=== PATIENT | female | born 1995 | race Caucasian/White ===

== ENCOUNTER 2017-06-14 10:55 | Emergency (ER) | payer BC | END 2017-06-14 13:32 | disposition left against medical advice (07) | LOC: UCCORT 10:55 | DX: R39.9 Unspecified symptoms and signs involving the genitourinary system (principal); Z53.21 Procedure and treatment not carried out due to patient leaving prior to being seen by health care provider ==

== ENCOUNTER 2017-10-23 15:56 | Emergency (ER) | payer BC ==
[2017-10-23 17:22] VITALS: BP 115/82
--- NOTE | 2017-10-23 17:42 | UC ---
Throat Pain/Nasal Samir HPI - HPI Summary HPI Summary: Pt presents with c/o nasal congestion, sinus pressure and pain , and BERRY X 8 days. - History of Current Complaint Chief Complaint: UCRespiratory Stated Complaint: SINUS COMP Time Seen by Provider: 10/23/17 17:29 Hx Obtained From: Patient Hx Last Menstrual Period: ONSET TODAY ?: No Onset/Duration: Sudden Onset, Lasting Days, Still Present Severity: Moderate Pain Intensity: 7 Cough: Nonproductive Associated Signs & Symptoms: Positive: Sinus Discomfort, Nasal Discharge - Epiglottits Risk Factors Epiglottis Risk Factors: Negative - Allergies/Home Medications Allergies/Adverse Reactions: Allergies Allergy/AdvReac Type Severity Reaction Status Date / Time No Known Allergies Allergy Verified 10/23/17 17:15 Home Medications: Home Medications Norgestimate-Ethinyl Estradiol [Tri-Linyah Tablet] 1 tab PO DAILY 10/23/17 [ History Confirmed 10/23/17] PMH/Surg Hx/FS Hx/Imm Hx Previously Healthy: Yes - Surgical History Surgical History: None Surgery Procedure, Year, and Place: [address] OFFICE. BUNIONECTOMY RIGHT FOOT - Family History Known Family History: Positive: Cardiac Disease - Social History Lives: With Family Alcohol Use: Occasionally Substance Use Type: None Smoking Status (MU): Never Smoked Tobacco Have You Smoked in the Last Year: No - Immunization History Vaccination Up to Date: Yes Review of Systems Constitutional: Fatigue Skin: Negative Eyes: Negative ENT: Sinus Congestion, Sinus Pain/Tenderness Respiratory: Cough Cardiovascular: Negative Gastrointestinal: Negative Genitourinary: Negative Motor: Negative Neurovascular: Negative Musculoskeletal: Negative Neurological: Headache Psychological: Negative Is Patient Immunocompromised?: No All Other Systems Reviewed And Are Negative: Yes Physical Exam Triage Information Reviewed: Yes Appearance: Ill-Appearing Vital Signs: Initial Vital Signs Temp 98.2 F 10/23/17 17:16 Pulse 86 10/23/17 17:16 Resp 16 10/23/17 17:16 BP 115/82 10/23/17 17:16 Pulse Ox 98 10/23/17 17:16 Vital Signs Reviewed: Yes Eye Exam: Normal ENT Exam: Other ENT: Positive: Nasal congestion, Sinus tenderness Dental Exam: Normal Neck exam: Normal Respiratory Exam: Normal Cardiovascular Exam: Normal Musculoskeletal Exam: Normal Neurological Exam: Normal Psychological Exam: Normal Skin Exam: Normal Throat Pain/Nasal Course/Dx - Differential Dx/Diagnosis Differential Diagnosis/HQI/PQRI: Sinusitis, URI Provider Diagnoses: sinusitis Discharge - Sign-Out/Discharge Documenting (check all that apply): Discharge/Admit/Transfer - Discharge Plan Condition: Stable Disposition: HOME Prescriptions: Amoxicillin PO (*) [Amoxicillin 875 MG (*)] 875 mg PO Q12H #20 tab Cetirizine HCl/Pseudoephedrine [Zyrtec-D Tablet] 1 each PO DAILY #10 tab Patient Education Materials: Sinusitis (ED) Referrals: Garima Smart MD [Primary Care Provider] - If Needed - Billing Disposition and Condition Condition: STABLE Disposition: HOME
== END 2017-10-23 17:53 | disposition home or self-care (01) ==
LOC: UCCORT 15:56
DX: J32.9 Chronic sinusitis, unspecified (principal)
CPT/HCPCS: 99212; G0463

== ENCOUNTER 2018-11-03 14:14 | Emergency (ER) | payer BC ==
[2018-11-03 15:16] VITALS: BP 123/82
--- NOTE | 2018-11-03 15:24 | UC ---
Throat Pain/Nasal Samir HPI - HPI Summary HPI Summary: 23-year-old female presents with 2 day history headache, sinus pressure, nasal congestion, runny nose, postnasal drip, bilateral ear fullness, and some mild sore throat. Associated with some dizziness which she describes as occasional disequilibrium. States has had similar symptoms around this time of year in the past although has never been officially diagnosed with seasonal allergies. Denies fever, chills, ear pain, dysphagia, cough, shortness of breath, chest pain, abdominal pain, nausea or vomiting. - History of Current Complaint Chief Complaint: UCRespiratory Stated Complaint: SORE THROAT, SINUSES Time Seen by Provider: 11/03/18 15:08 Hx Obtained From: Patient Hx Last Menstrual Period: 10/29/18 Pain Intensity: 5 - Allergies/Home Medications Allergies/Adverse Reactions: Allergies Allergy/AdvReac Type Severity Reaction Status Date / Time No Known Allergies Allergy Verified 11/03/18 15:13 Home Medications: Home Medications D-Methorphan/PE/Acetaminophen [Vicks Dayquil Cold & Flu] 2 cap PO Q6H PRN [History Confirmed 11/03/18] PMH/Surg Hx/FS Hx/Imm Hx Previously Healthy: Yes - Denies significant PMH - Surgical History Surgical History: Yes Surgery Procedure, Year, and Place: 2013 [address] OFFICE. BUNIONECTOMY RIGHT FOOT - Family History Known Family History: Positive: Cardiac Disease - Social History Occupation: Employed Full-time Lives: Alone Alcohol Use: Rare Substance Use Type: None Smoking Status (MU): Never Smoked Tobacco Have You Smoked in the Last Year: No - Immunization History Vaccination Up to Date: Yes Review of Systems All Other Systems Reviewed And Are Negative: Yes Constitutional: Negative: Fever, Chills Eyes: Negative: Drainage, Eye Redness ENT: Positive: Sore Throat, Nasal Discharge, Sinus Congestion, Sinus Pain/ Tenderness. Negative: Ear Ache Respiratory: Negative: Shortness Of Breath, Cough Cardiovascular: Negative: Palpitations, Chest Pain Gastrointestinal: Negative: Abdominal Pain, Vomiting, Diarrhea, Nausea Genitourinary: Positive: Negative Musculoskeletal: Positive: Negative Neurological: Positive: Headache Is Patient Immunocompromised?: No Physical Exam - Summary Physical Exam Summary: GENERAL APPEARANCE: Well developed, well nourished, alert and cooperative, and appears to be in no acute distress. EYES: Conjunctiva clear. No drainage. EARS: External auditory canals and tympanic membranes clear, hearing grossly intact. NOSE: Moderate nasal congestion with clear nasal discharge. Tenderness over the maxillary sinuses. THROAT: Pharyngeal cobblestoning. No tonsilar inflammation, swelling, exudate, or lesions. Uvula midline. Oral cavity normal. Teeth and gingiva in good general condition. NECK: Neck supple, non-tender without lymphadenopathy. CARDIAC: Normal S1 and S2. No S3, S4 or murmurs. Rhythm is regular. There is no peripheral edema, cyanosis or pallor. Extremities are warm and well perfused. Capillary refill is less than 2 seconds. Peripheral pulses intact. LUNGS: Clear to auscultation without rales, rhonchi, wheezing or diminished breath sounds. ABDOMEN: Positive bowel sounds. Soft, nondistended, nontender. No guarding or rebound. No masses or hepatosplenomegally. MUSKULOSKELETAL: ROM intact to all extremities. No joint erythema or tenderness. Normal muscular development. Normal gait. SKIN: Skin normal color, texture and turgor with no lesions or eruptions. Triage Information Reviewed: Yes Vital Signs: Initial Vital Signs Temp 98.6 F 11/03/18 15:11 Pulse 98 11/03/18 15:11 Resp 16 11/03/18 15:11 BP 123/82 11/03/18 15:11 Pulse Ox 100 11/03/18 15:11 Vital Signs Reviewed: Yes Throat Pain/Nasal Course/Dx - Course Course Of Treatment: 23-year-old female presents with 2 day history headache, sinus pressure, nasal congestion, runny nose, postnasal drip, bilateral ear fullness, and some mild sore throat. Associated with some dizziness which she describes as occasional disequilibrium. States has had similar symptoms around this time of year in the past although has never been officially diagnosed with seasonal allergies. Denies fever, chills, ear pain, dysphagia, cough, shortness of breath, chest pain, abdominal pain, nausea or vomiting. Afebrile. Vital signs stable. Exam revealed motor nasal congestion, clear nasal discharge, maxillary sinus tenderness, pharyngeal cobblestoning with no tonsillar swelling or exudate, and no cervical lymphadenopathy. Recommending conservative treatment for acute rhinosinusitis related to viral illness versus seasonal allergy including saline rinses, fluticasone nasal spray, [id number] combination antihistamine-decongestant, and [id number] analgesics. She is to follow- up with her primary care provider in 3-5 days if symptoms persist. Anticipatory guidance and warning symptoms were reviewed with the patient. Verbalizes understanding and agrees with plan of care. - Differential Dx/Diagnosis Differential Diagnosis/HQI/PQRI: Sinusitis, URI, Other - Seasonal allergies Provider Diagnosis: Acute rhinosinusitis Discharge - Sign-Out/Discharge Documenting (check all that apply): Patient Departure All imaging exams completed and their final reports reviewed: No Studies - Discharge Plan Condition: Stable Disposition: HOME Prescriptions: Fluticasone NASAL SPRAY 50MCG* [Flonase NASAL SPRAY 50MCG*] 2 spray BOTH NARES DAILY #1 btl Patient Education Materials: Rhinosinusitis (ED) Referrals: Garima Smart MD [Primary Care Provider] - 3 Days Additional Instructions: Your history and exam are consistent with a sinus infection. Sinus infections without fever are most often caused by a viral infections or allergies. Viral infections and allergies do not respond to antibiotics and are limited to the treatment of symptoms. Viral infections typically run their course in 7-10 days. Drink plenty of fluids to avoid dehydration especially if you are running any fever. Use a saline rinse kit such as Neti Pot or NeilMed at least twice a day to help thin secretions and promote drainage of the sinuses. Use fluticasone (Flonase) nasal spray 2 sprays each nostril once daily. Use an over the counter antihistamine-decongestant such as Zyrtec-D, Opal-D, or Claritin-D according to directions to help with congestion. Take over the counter acetaminophen (Tylenol) or ibuprofen (Advil, Motrin) according to directions as needed for pain or fever. Follow up with your primary care provider in 3-5 days if symptoms persist. Seek immediate medical attention in the emergency room if you have fever greater than 100.5 F despite taking acetaminophen or ibuprofen, have chest pain , difficulty breathing, are unable to swallow, or have any worsening of symptoms. - Billing Disposition and Condition Condition: STABLE Disposition: Home - Attestation Statements Provider Attestation: Per institutional requirements, I have reviewed the chart, however, I was not consulted specifically or made aware of this patient by the midlevel provider. I did not personally evaluate, interact with , or disposition this patient.
== END 2018-11-03 15:50 | disposition home or self-care (01) ==
LOC: UCCORT 14:14
DX: J01.90 Acute sinusitis, unspecified (principal); J02.9 Acute pharyngitis, unspecified; R42 Dizziness and giddiness
CPT/HCPCS: 99212; G0463

== ENCOUNTER 2021-07-26 20:17 | Inpatient (IN) ==
[2021-07-26] MEDS: Lactated Ringers 1000 ml BAG 1,000 ML IV ONE (21:20)
[2021-07-26 21:35] LABS: ABS Eosinophils 0.2 10^3/ul (0-0.6); ABS Lymphocytes 2.9 10^3/ul (1.0-4.8); ABS Neutrophils 10.4 10^3/ul (1.5-7.7); Hematocrit 36 % (35-47); Hemoglobin 12.1 g/dL (12.0-16.0); Mean Corpuscular HGB Conc 34 g/dL (31-36); Mean Corpuscular Hemoglobin 28 pg (27-31); Mean Corpuscular Volume 84 fL (80-97); Mean Platelet Volume 7.8 fL (7.4-10.4); Platelet Count 229 10^3/uL (150-450); Red Blood Count 4.26 10^6 /uL (3.70-4.87); Red Cell Distribution Width 14 % (10-15); White Blood Count 14.5 10^3/uL (3.5-10.8)
[2021-07-26] MEDS ORDERED: fentaNYL 100 mcg/2 ml 50 MCG/ML VIAL ONE ×2 (22:51→23:30)
[2021-07-26] MEDS ORDERED: fentaNYL 100 mcg/2 ml 50 MCG/ML VIAL IV SLOW PU ONE (22:51)
[2021-07-26] MEDS ORDERED: Ropivacaine 0.1% EPIDURAL 300 ML EPIDURAL SCH (23:45)
[2021-07-27] MEDS: Lactated Ringers 1000 ml BAG 1,000 ML IV ONE (00:10)
[2021-07-27] MEDS ORDERED: Phenylephrine 40 mcg/mL 10mL (400mcg) SYRINGE IV PUSH PRN ×2 (00:15)
[2021-07-27] MEDS ORDERED: Sodium Citrate/Citric Acid LIQ 15 ML UDC PO PRN (00:15)
[2021-07-27] MEDS ORDERED: Lactated Ringers 1000 ml BAG 1,000 ML IV ONE (00:15)
[2021-07-27] MEDS ORDERED: OBEPIDURAL 250 ML EPIDURAL SCH (01:00)
[2021-07-27] MEDS ORDERED: Lactated Ringers 1000 ml BAG 1,000 ML IV SCH ×2 (01:00→13:00)
[2021-07-27 01:09] LABS: Urine Appearance Clear; Urine Bilirubin Negative (Negative); Urine Blood Negative (Negative); Urine Color Yellow; Urine Glucose Negative (Negative); Urine Ketones Negative (Negative); Urine Nitrite Negative (Negative); Urine Protein Negative (Negative); Urine Specific Gravity 1.014 (1.002-1.030); Urine Urobilinogen Negative (Negative)
[2021-07-27] MEDS ORDERED: Ropivacaine 0.2% 2 MG/ML VIAL ONE (01:11)
[2021-07-27 01:12] LABS: Urine Benzodiazepine Screen None Detected (None Detect); Urine Cannabinoids Screen None Detected (None Detect); Urine Opiates Screen None Detected (None Detect)
[2021-07-27] MEDS ORDERED: Lidocaine 2% PF 10 ML AMP ONE (03:39)
[2021-07-27] MEDS ORDERED: Bupivacaine 0.25% SDV PF 10 ML VIAL INJ ONE (03:39)
[2021-07-27] MEDS ORDERED: Oxytocin in LR 20 UNITS/1,000 ML BAG IVPB ONE (05:03)
[2021-07-27] MEDS ORDERED: Oxytocin in LR 20 UNITS/1,000 ML BAG IVPB SCH (08:00)
[2021-07-27] MEDS ORDERED: fentaNYL 100 mcg/2 ml 50 MCG/ML VIAL ONE (08:07)
[2021-07-27] MEDS ORDERED: Lidocaine 2% w/ EPI 1:200,000 MPF 20 ML SDV VIAL ONE (08:07)
[2021-07-27] MEDS: Oxytocin in LR 20 UNITS/1,000 ML BAG IVPB SCH ×2 (12:25→17:00)
[2021-07-27] MEDS ORDERED: Tetan/Diph/Pertus SYR(Tdap) 0.5 ML SYR(BOOSTRIX) use SYR contains LATEX IM ONE (12:35)
[2021-07-27] MEDS ORDERED: Glycerin ADULT 2.4 gm SUPP PR PRN (12:35)
[2021-07-27] MEDS: Witch Hazel PAD JAR TOPICAL PRN (14:41)
[2021-07-27] MEDS: Dibucaine 1% OINT 28.35 GM TUBE PR PRN (14:41)
[2021-07-27] MEDS ORDERED: Lidocaine 1% VIAL 10 MG/ML VIAL ONE (17:20)
[2021-07-28 06:23] LABS: ABS Basophils 0.1 10^3/ul (0-0.2); ABS Eosinophils 0.2 10^3/ul (0-0.6); ABS Lymphocytes 3.1 10^3/ul (1.0-4.8); ABS Monocytes 1.4 10^3/ul (0-0.8); ABS Neutrophils 15.5 10^3/ul (1.5-7.7); Eosinophil % 0.9 %; Hematocrit 30 % (35-47); Hemoglobin 10.1 g/dL (12.0-16.0); Lymphocyte % 15.2 %; Mean Corpuscular HGB Conc 34 g/dL (31-36); Mean Corpuscular Hemoglobin 29 pg (27-31); Mean Corpuscular Volume 86 fL (80-97); Mean Platelet Volume 7.6 fL (7.4-10.4); Platelet Count 189 10^3/uL (150-450); Red Blood Count 3.52 10^6 /uL (3.70-4.87); Red Cell Distribution Width 15 % (10-15); White Blood Count 20.2 10^3/uL (3.5-10.8)
[2021-07-28] MEDS: Witch Hazel PAD JAR TOPICAL PRN (23:19)
[2021-07-28] MEDS: Dibucaine 1% OINT 28.35 GM TUBE PR PRN (23:19)
[2021-07-29 08:25] VITALS: BP 121/76
== END 2021-07-29 14:15 | disposition home or self-care (01) | DRG 560 ==
LOC: MCHOBOUT 20:17 → MCHOB 20:51
PROVIDERS: ADMIT Midwife; ATTEND Midwife

== ENCOUNTER 2024-04-14 07:20 | Inpatient (IN) ==
[2024-04-14] MEDS ORDERED: Lidocaine 1% VIAL 10 MG/ML 30 ML VIAL INJ PRN (08:37)
[2024-04-14] MEDS ORDERED: Buffered Lidocaine 1% SYRIN 1 ml INTRADERM ONE (08:37)
[2024-04-14] MEDS: Lactated Ringers 1000 ml BAG 1,000 ML IV ONE (09:16)
[2024-04-14 09:23] LABS: ABS Basophils 0.1 10^3/uL (0.0-0.1); ABS Monocytes 0.6 10^3/uL (0.0-0.9); ABS Neutrophils 10.9 10^3/uL (1.5-7.6); Eosinophil % 0.2 %; Hematocrit 36.3 % (35-45); Hemoglobin 12.2 g/dL (11.5-14.3); Lymphocyte % 15.1 %; Mean Corpuscular Hemoglobin 27.8 pg (27-33); Mean Corpuscular Hgb Conc 33.7 g/dL (31-36); Mean Corpuscular Volume 82.6 fL (80-97); Mean Platelet Volume 7.7 fL (7.5-11.2); Platelet Count 251 10^3/uL (150-450); Red Cell Distribution Width 13.6 % (12-17); White Blood Count 13.5 10^3/uL (3.8-11.8)
[2024-04-14] MEDS ORDERED: Phenylephrine 40 mcg/mL 10mL (400mcg) SYRINGE ONE (09:44)
[2024-04-14] MEDS ORDERED: Lidocaine 1.5% EPI 1:200,000 30 ML SDV ONE (09:44)
[2024-04-14 09:46] LABS: Urine Benzodiazepine Screen None Detected (None Detect); Urine Cannabinoids Screen None Detected (None Detect); Urine Opiates Screen None Detected (None Detect)
[2024-04-14] MEDS: Lactated Ringers 1000 ml BAG 1,000 ML IV SCH (10:09)
[2024-04-14] MEDS: OBEPIDURAL (200 ML) 200 ML EPIDURAL ONE (10:15)
[2024-04-14] MEDS ORDERED: Lactated Ringers 1000 ml BAG 1,000 ML IV ONE (11:50)
[2024-04-14] MEDS ORDERED: Sodium Citrate/Citric Acid LIQ 15 ML UDC PO PRN (11:50)
[2024-04-14] MEDS ORDERED: Phenylephrine 40 mcg/mL 10mL (400mcg) SYRINGE IV PUSH PRN ×2 (11:50)
[2024-04-14] MEDS ORDERED: Lactated Ringers 1000 ml BAG 1,000 ML IV SCH (12:00)
[2024-04-14] MEDS ORDERED: fentaNYL 100 mcg/2 ml 50 MCG/ML VIAL ONE (14:37)
[2024-04-14] MEDS ORDERED: Bupivacaine 0.25% SDV PF 10 ML VIAL INJ ONE (14:37)
[2024-04-14 15:17] LABS: Urine Appearance Clear; Urine Bilirubin Negative (Negative); Urine Blood Negative (Negative); Urine Color Light-Yellow; Urine Glucose Negative (Negative); Urine Ketones 1+ (Negative); Urine Nitrite Negative (Negative); Urine Protein Trace (Negative); Urine Urobilinogen Negative (Negative); Urine pH 7.5 (5.0-8.0)
[2024-04-14] MEDS: Oxytocin in LR 20,000 MILLI.UNIT/1,000 ML BAG IV SCH ×2 (15:47→19:12)
[2024-04-14] MEDS ORDERED: Glycerin ADULT 2.4 gm SUPP PR PRN (18:11)
[2024-04-14] MEDS: Witch Hazel PAD JAR TOPICAL PRN (19:13)
[2024-04-14] MEDS: Dibucaine 1% OINT 28.35 GM TUBE PR PRN (19:13)
[2024-04-15] MEDS: OBEPIDURAL (200 ML) 200 ML EPIDURAL SCH (06:51)
[2024-04-15] MEDS: Oxytocin in LR 20,000 MILLI.UNIT/1,000 ML BAG IV ONE (06:51)
[2024-04-15 08:12] LABS: ABS Basophils 0.1 10^3/uL (0.0-0.1); ABS Eosinophils 0.1 10^3/uL (0.0-0.5); ABS Lymphocytes 2.5 10^3/uL (1.0-4.8); ABS Monocytes 0.8 10^3/uL (0.0-0.9); ABS Neutrophils 13.6 10^3/uL (1.5-7.6); ABS Nucleated RBC 0.01 10^3/ul; Eosinophil % 0.4 %; Hematocrit 33.6 % (35-45); Hemoglobin 11.2 g/dL (11.5-14.3); Lymphocyte % 14.4 %; Mean Corpuscular Hemoglobin 27.9 pg (27-33); Mean Corpuscular Hgb Conc 33.5 g/dL (31-36); Mean Corpuscular Volume 83.2 fL (80-97); Platelet Count 240 10^3/uL (150-450); Red Blood Count 4.03 10^6/uL (3.63-4.92); White Blood Count 17.1 10^3/uL (3.8-11.8)
[2024-04-15 17:11] VITALS: BP 120/75
== END 2024-04-15 18:05 | disposition home or self-care (01) | DRG 560 ==
LOC: MCHOBOUT 07:20 → MCHOB 09:02
PROVIDERS: ADMIT Midwife; ATTEND Midwife